=== PATIENT | male | born 1965 | race African-American/Black ===

== ENCOUNTER 2017-06-19 21:20 | Inpatient (IN) | payer MEDICAID ==
[~2017-06-19] VITALS: Ht 175.3 cm; Wt 72.6 kg
[2017-06-19] MEDS ORDERED: SODIUM CHLORIDE 0.9% 1,000 ML IV ONE (22:29)
[2017-06-19] MEDS ORDERED: LIDOCAINE HCL 1% 20ML VIAL (Pyxis) INJ MC ONE (22:30)
[2017-06-19] MEDS ORDERED: TETANUS, DIPHTHERIA, PERTUSSIS VAC/PF 0.5ML (>7YR OLD) IM ONE (22:30)
[2017-06-19] MEDS ORDERED: BACITRACIN ZINC OINT UDPKT TOP ONE (22:30)
[2017-06-19] MEDS ORDERED: PIPERACILLIN/TAZ 3.375G PREMIX 50 ML IV ONE (22:45)
[2017-06-19] MEDS ORDERED: VANCOMYCIN 1 G PREMIX 200 ML IV ONE (22:45)
[2017-06-19 22:58] LABS: BASOPHILS % 0.3 % (0.0-2.0); EOSINOPHILS % 2.1 % (0.0-5.0); HEMATOCRIT. 36.3 % (42.0-52.0); HEMOGLOBIN. 12.5 g/dL (14.0-18.0); LYMPHOCYTES % 9.2 % (20.0-50.0); MEAN CORPUSCULAR HEMOGLOBIN 32.3 pg (28.0-32.0); MEAN CORPUSCULAR VOLUME 94.1 fL (80.0-94.0); MEAN PLATELET VOLUME 7.8 fl (7.4-10.4); MONOCYTES % 4.6 % (2.0-8.0); NEUTROPHILS % 83.8 % (40.0-76.0); PLATELET 257 x1000/uL (130-400); RED BLOOD CELL COUNT 3.86 mill/uL (4.7-6.1); RED CELL DISTRIBUTION WIDTH 14.1 % (11.6-14.6)
[2017-06-19 23:03] LABS: CHLORIDE 100 mEq/L (98-107)
[2017-06-19 23:05] LABS: PROTHROMBIN TIME 10.7 sec (9.4-11.6)
[2017-06-19 23:10] LABS: CARBON DIOXIDE 27 mEq/L (21-32); ETHANOL BLOOD 71 mg/dL
[2017-06-19 23:14] LABS: TROPONIN I < 0.02 ng/mL (0.00-0.04)
[2017-06-19 23:21] LABS: AMMONIA 35 uMol/L (<32)
[2017-06-19 23:23] LABS: CREATINE KINASE 1120 IU/L (39-308)
[2017-06-20] MEDS ORDERED: LACTULOSE 20G/30ML UDC PO SCH ×2 (00:32→04:45)
[2017-06-20] MEDS ORDERED: SODIUM CHLORIDE 0.9% 1000ML BAG (SEPSIS BOLUS) IV SCH ×2 (00:33→04:45)
[2017-06-20 02:14] LABS: *AMPHETAMINES SCREEN URINE NEGATIVE (NEGATIVE); *BARBITURATES SCREEN URINE NEGATIVE (NEGATIVE); *BENZODIAZEPINES SCREEN URINE NEGATIVE (NEGATIVE); *COCAINE SCREEN URINE PRESUMTIVE POSITIVE (NEGATIVE); CANNABINOID URINE SCREEN NEGATIVE (NEGATIVE); METHADONE URINE SCREEN NEGATIVE (NEGATIVE); OPIATES URINE SCREEN NEGATIVE (NEGATIVE); PHENCYCLIDINE URINE SCREEN NEGATIVE (NEGATIVE)
[2017-06-20] MEDS ORDERED: FENTANYL CITRATE/PF 50MCG/ML 2ML VIAL IV ONE (03:30)
[2017-06-20 05:36] LABS: CREATINE KINASE 1125 IU/L (39-308)
[2017-06-20 08:40] VITALS: BP_SYST 133; BP_SYST 141; BP_DIAS 80; BP_DIAS 84
[2017-06-20] MEDS ORDERED: ONDANSETRON HCL 4MG/2ML VIAL IV PRN (11:00)
[2017-06-20] MEDS ORDERED: HYDROCODONE/ACETAMINOPHEN 10/325MG TABLET PO PRN (11:00)
[2017-06-20] MEDS ORDERED: ACETAMINOPHEN 325MG TABLET PO PRN (11:00)
[2017-06-20] MEDS ORDERED: GUAIFENESIN 200MG/10ML SUGAR FREE UDC PO PRN (11:00)
[2017-06-20] MEDS ORDERED: DIPHENHYDRAMINE 50MG/ML VIAL IV PRN (11:00)
[2017-06-20] MEDS ORDERED: CLONIDINE 0.1MG TABLET PO PRN (11:00)
[2017-06-20] MEDS: AMLODIPINE 10MG TABLET PO SCH (11:33)
[2017-06-20] MEDS: ENOXAPARIN 40MG/0.4ML SYR SUBCUT SCH (11:33)
[2017-06-20 12:00] VITALS: BP 152/81
[2017-06-20 15:30] LABS: CREATINE KINASE 889 IU/L (39-308)
[2017-06-20 16:00] VITALS: BP 137/74
[2017-06-20] MEDS: SODIUM CHLORIDE 0.9% 1,000 ML IV SCH (17:57)
[2017-06-20] MEDS: HYDROMORPHONE HCL/PF 2MG/ML CPJ IV PRN (18:28)
[2017-06-20 20:00] VITALS: BP 116/63
[2017-06-21] VITALS (7 sets, daily range): BP systolic 101–135; BP diastolic 54–76
[2017-06-21 01:25] LABS: CREATINE KINASE 822 IU/L (39-308)
[2017-06-21] MEDS: SODIUM CHLORIDE 0.9% 1,000 ML IV SCH ×2 (05:03→12:45)
[2017-06-21] MEDS: HYDROMORPHONE HCL/PF 2MG/ML CPJ IV PRN (05:03)
[2017-06-21 06:02] LABS: CARBON DIOXIDE 29 mEq/L (21-32); CHLORIDE 102 mEq/L (98-107)
[2017-06-21 06:12] LABS: BASOPHILS % 0.4 % (0.0-2.0); EOSINOPHILS % 3.6 % (0.0-5.0); HEMATOCRIT. 38.9 % (42.0-52.0); HEMOGLOBIN. 13.1 g/dL (14.0-18.0); LYMPHOCYTES % 13.8 % (20.0-50.0); MEAN CORPUSCULAR VOLUME 94.9 fL (80.0-94.0); MEAN PLATELET VOLUME 8.4 fl (7.4-10.4); MONOCYTES % 9.8 % (2.0-8.0); NEUTROPHILS % 72.4 % (40.0-76.0); PLATELET 240 x1000/uL (130-400); RED CELL DISTRIBUTION WIDTH 14.1 % (11.6-14.6)
[2017-06-21] MEDS: AMLODIPINE 10MG TABLET PO SCH (08:48)
[2017-06-21] MEDS: ENOXAPARIN 40MG/0.4ML SYR SUBCUT SCH (08:59)
[2017-06-21] MEDS: ASPIRIN 81MG EC TABLET PO SCH (09:00)
[2017-06-21 16:24] LABS: CREATINE KINASE 616 IU/L (39-308)
[2017-06-22] VITALS: BP 102/63
[2017-06-22 04:00] VITALS: BP 125/78
[2017-06-22] MEDS: SODIUM CHLORIDE 0.9% 1,000 ML IV SCH ×2 (05:33→16:20)
[2017-06-22 08:00] VITALS: BP 137/77
[2017-06-22] MEDS: ASPIRIN 81MG EC TABLET PO SCH (08:46)
[2017-06-22] MEDS: AMLODIPINE 10MG TABLET PO SCH (08:46)
[2017-06-22] MEDS: ENOXAPARIN 40MG/0.4ML SYR SUBCUT SCH (08:47)
[2017-06-22] MEDS: HYDROMORPHONE HCL/PF 2MG/ML CPJ IV PRN ×2 (08:53→20:57)
[2017-06-22 12:00] VITALS: BP 112/67
[2017-06-22 16:00] VITALS: BP 120/72
[2017-06-22 20:00] VITALS: BP 113/60
[2017-06-23] VITALS: BP 106/50
[2017-06-23 04:00] VITALS: BP 108/69
[2017-06-23] MEDS: SODIUM CHLORIDE 0.9% 1,000 ML IV SCH ×2 (05:40→19:00)
[2017-06-23 08:00] VITALS: BP 112/64
[2017-06-23] MEDS: ENOXAPARIN 40MG/0.4ML SYR SUBCUT SCH (09:00)
[2017-06-23] MEDS: SILVER SULFADIAZINE 1% CREAM 50GM TOP SCH (09:15)
[2017-06-23] MEDS: AMLODIPINE 10MG TABLET PO SCH (09:15)
[2017-06-23] MEDS: ASPIRIN 81MG EC TABLET PO SCH (09:15)
[2017-06-23 12:00] VITALS: BP_SYST 112; BP_SYST 117; BP_DIAS 64; BP_DIAS 70
[2017-06-23 16:00] VITALS: BP 121/76
[2017-06-23] MEDS: HYDROMORPHONE HCL/PF 2MG/ML CPJ IV PRN ×2 (16:46→20:18)
[2017-06-23 20:00] VITALS: BP 150/87
[2017-06-24] VITALS: BP 105/60
[2017-06-24 04:00] VITALS: BP 105/62
[2017-06-24 08:00] VITALS: BP 133/79
[2017-06-24] MEDS: SODIUM CHLORIDE 0.9% 1,000 ML IV SCH ×2 (08:20→22:29)
[2017-06-24] MEDS: SILVER SULFADIAZINE 1% CREAM 50GM TOP SCH (08:27)
[2017-06-24] MEDS: AMLODIPINE 10MG TABLET PO SCH (08:27)
[2017-06-24] MEDS: ASPIRIN 81MG EC TABLET PO SCH (08:27)
[2017-06-24] MEDS: ENOXAPARIN 40MG/0.4ML SYR SUBCUT SCH (08:54)
[2017-06-24] MEDS: HYDROMORPHONE HCL/PF 2MG/ML CPJ IV PRN ×3 (10:30→20:44)
[2017-06-24 12:00] VITALS: BP 105/58
[2017-06-24 16:00] VITALS: BP 115/73
[2017-06-24 20:00] VITALS: BP_SYST 122; BP_SYST 126; BP_DIAS 71; BP_DIAS 72
[2017-06-25] VITALS: BP 135/66
[2017-06-25 04:00] VITALS: BP 123/61
[2017-06-25 08:00] VITALS: BP 105/64
[2017-06-25] MEDS: ENOXAPARIN 40MG/0.4ML SYR SUBCUT SCH (09:00)
[2017-06-25] MEDS: AMLODIPINE 10MG TABLET PO SCH (09:00)
[2017-06-25] MEDS: ASPIRIN 81MG EC TABLET PO SCH (09:19)
[2017-06-25] MEDS: SODIUM CHLORIDE 0.9% 1,000 ML IV SCH (11:00)
[2017-06-25 12:00] VITALS: BP 110/65
[2017-06-25] MEDS: SILVER SULFADIAZINE 1% CREAM 50GM TOP SCH (14:57)
[2017-06-25 16:00] VITALS: BP 108/61
[2017-06-25] MEDS: HYDROMORPHONE HCL/PF 2MG/ML CPJ IV PRN (17:28)
[2017-06-25 20:00] VITALS: BP 124/73
[2017-06-25] MEDS: HYDROCODONE/ACETAMINOPHEN 10/325MG TABLET PO PRN (21:07)
[2017-06-26] VITALS: BP 127/72
[2017-06-26] MEDS: SODIUM CHLORIDE 0.9% 1,000 ML IV SCH ×2 (00:20→13:40)
[2017-06-26 04:00] VITALS: BP 127/78
[2017-06-26 08:00] VITALS: BP 112/72
[2017-06-26] MEDS: ENOXAPARIN 40MG/0.4ML SYR SUBCUT SCH ×2 (08:46→09:00)
[2017-06-26] MEDS: AMLODIPINE 10MG TABLET PO SCH (08:46)
[2017-06-26] MEDS: ASPIRIN 81MG EC TABLET PO SCH (08:46)
[2017-06-26] MEDS: HYDROMORPHONE HCL/PF 2MG/ML CPJ IV PRN ×2 (08:47→15:33)
[2017-06-26] MEDS: SILVER SULFADIAZINE 1% CREAM 50GM TOP SCH (08:48)
[2017-06-26 12:00] VITALS: BP 104/54
[2017-06-26 16:00] VITALS: BP 105/58
[2017-06-26] MEDS: HYDROCODONE/ACETAMINOPHEN 10/325MG TABLET PO PRN (18:37)
[2017-06-26 20:00] VITALS: BP 104/53
[2017-06-27] VITALS: BP 112/60
[2017-06-27 04:00] VITALS: BP 118/67
[2017-06-27 07:50] VITALS: BP 119/66
[2017-06-27] MEDS: ENOXAPARIN 40MG/0.4ML SYR SUBCUT SCH (09:00)
[2017-06-27] MEDS: AMLODIPINE 10MG TABLET PO SCH (09:00)
[2017-06-27] MEDS: ASPIRIN 81MG EC TABLET PO SCH (09:00)
[2017-06-27] MEDS: SILVER SULFADIAZINE 1% CREAM 50GM TOP SCH (09:13)
[2017-06-27] MEDS: HYDROMORPHONE HCL/PF 2MG/ML CPJ IV PRN (09:32)
[2017-06-27 12:15] VITALS: BP 119/68
[2017-06-27 15:09] VITALS: BP 105/55
== END 2017-06-27 15:30 | DRG 384 ==
LOC: ER 22:44 → 8WST 06-20 05:04 → EDBEDREQSVC 06-20 05:05 → ENRESERV 06-20 06:44
PROVIDERS: ADMIT Hospitalist; ATTEND Hospitalist
DX: S41.152A Open bite of left upper arm, initial encounter (principal); M62.82 Rhabdomyolysis; D50.9 Iron deficiency anemia, unspecified; I10 Essential (primary) hypertension; F14.10 Cocaine abuse, uncomplicated; F17.200 Nicotine dependence, unspecified, uncomplicated; S71.152A Open bite, left thigh, initial encounter; S41.151A Open bite of right upper arm, initial encounter; W54.0XXA Bitten by dog, initial encounter; Y93.89 Activity, other specified; Y92.89 Other specified places as the place of occurrence of the external cause; Y99.8 Other external cause status
CPT/HCPCS: 12002; 36415; 70450; 71010; 73060; 73080; 73090; 73110; 74176; 80053; 80305; 80307; 80329; 82140; 82550; 84484; 85025; 85610; 86850; 86900; 90471; 90715; 96365; 96375; 97161; 97166; 99285; G0482; J1170; J1650; J2543; J3010; J3370; J3490; J7030

== ENCOUNTER 2018-04-12 04:03 | Emergency (ER) | payer MEDICAID ==
[~2018-04-12] VITALS: Ht 180.3 cm; Wt 85.0 kg
[2018-04-12] MEDS ORDERED: MORPHINE SULFATE 4 MG/ML CPJ (NOT FOR IM USE) IV ONE ×2 (04:45→11:15)
[2018-04-12] MEDS ORDERED: ONDANSETRON HCL 4MG/2ML VIAL IV ONE (04:45)
[2018-04-12 05:10] LABS: BASOPHILS % 0.3 % (0.0-2.0); EOSINOPHILS % 0.8 % (0.0-5.0); HEMATOCRIT. 35.9 % (42.0-52.0); LYMPHOCYTES % 10.1 % (20.0-50.0); MEAN CORPUSCULAR VOLUME 95.5 fL (80.0-94.0); MEAN PLATELET VOLUME 7.9 fl (7.4-10.4); MONOCYTES % 5.8 % (2.0-8.0); PLATELET 238 x1000/uL (130-400); RED BLOOD CELL COUNT 3.76 mill/uL (4.7-6.1); RED CELL DISTRIBUTION WIDTH 13.6 % (11.6-14.6)
[2018-04-12 05:16] LABS: CHLORIDE 106 mEq/L (98-107)
[2018-04-12] MEDS ORDERED: MIDAZOLAM HCL 2 MG/2 ML VIAL IV ONE (06:15)
[2018-04-12] MEDS ORDERED: IOHEXOL-300 100 ML BOTTLE ONE (09:26)
[2018-04-12] MEDS ORDERED: SODIUM CHLORIDE 0.9% 1,000 ML IV ONE (11:03)
[2018-04-12] MEDS ORDERED: PIPERACILLIN/TAZ 3.375G PREMIX 50 ML IV ONE (11:15)
[2018-04-12 13:10] VITALS: BP 175/105
== END 2018-04-12 13:36 | disposition short-term general hospital (02) ==
LOC: ER 04:03
DX: S39.81XA Other specified injuries of abdomen, initial encounter (principal); F17.200 Nicotine dependence, unspecified, uncomplicated; F14.10 Cocaine abuse, uncomplicated; Y00.XXXA Assault by blunt object, initial encounter; Y93.89 Activity, other specified; Y92.89 Other specified places as the place of occurrence of the external cause; Y99.8 Other external cause status
CPT/HCPCS: 36415; 74177; 80053; 85025; 96365; 96366; 96375; 96376; 99291; G0482; J2250; J2270; J2405; J2543; J7030; Q9967; Z7610

== ENCOUNTER 2019-04-20 00:44 | Emergency (ER) | payer MEDICAID ==
[~2019-04-20] VITALS: Ht 177.8 cm; Wt 82.0 kg
[2019-04-20 05:29] LABS: BASOPHILS % 0.8 % (0.0-2.0); EOSINOPHILS % 0.6 % (0.0-5.0); HEMATOCRIT. 37.5 % (42.0-52.0); HEMOGLOBIN. 12.5 g/dL (14.0-18.0); LYMPHOCYTES % 10.3 % (20.0-50.0); MEAN CORPUSCULAR HEMOGLOBIN 31.7 pg (28.0-32.0); MEAN CORPUSCULAR VOLUME 94.9 fL (80.0-94.0); MEAN PLATELET VOLUME 7.7 fl (7.4-10.4); MONOCYTES % 10.3 % (2.0-8.0); PLATELET 227 x1000/uL (130-400); RED BLOOD CELL COUNT 3.95 mill/uL (4.7-6.1); RED CELL DISTRIBUTION WIDTH 13.6 % (11.6-14.6)
[2019-04-20 05:41] LABS: PROTHROMBIN TIME 10.2 sec (9.6-11.0)
[2019-04-20 05:42] LABS: CHLORIDE 99 mEq/L (98-107)
[2019-04-20 05:51] LABS: CLARITY URINE CLEAR (CLEAR); COLOR URINE YELLOW (YELLOW); KETONES URINE NEGATIVE (NEGATIVE); LEUKOCYTE ESTERASE URINE NEGATIVE (NEGATIVE); NITRITE URINE NEGATIVE (NEGATIVE); OCCULT BLOOD URINE NEGATIVE (NEGATIVE); PROTEIN URINE TRACE (NEGATIVE)
[2019-04-20] MEDS ORDERED: KETOROLAC 60MG/2ML VIAL IM STA (06:12)
[2019-04-20] MEDS ORDERED: KETOROLAC 30MG/ML VIAL IV ONE (06:45)
[2019-04-20] MEDS ORDERED: CEFTRIAXONE 1 G PREMIX 50 ML IV ONE (07:30)
[2019-04-20] MEDS ORDERED: AZITHROMYCIN 500 MG TABLET PO ONE (07:30)
[2019-04-20 08:06] VITALS: BP 141/82
== END 2019-04-20 08:17 | disposition home or self-care (01) ==
LOC: ER 00:44
DX: J18.8 Other pneumonia, unspecified organism (principal); K40.90 Unilateral inguinal hernia, without obstruction or gangrene, not specified as recurrent; F17.290 Nicotine dependence, other tobacco product, uncomplicated; Z98.890 Other specified postprocedural states
CPT/HCPCS: 36415; 71045; 74018; 80053; 81003; 83690; 85025; 85610; 96365; 96375; 99284; 99406; J0696; J1885; Z7610

== ENCOUNTER 2020-12-12 21:15 | Emergency (ER) | payer MEDICAID, OTHER ==
[~2020-12-12] VITALS: Ht 175.3 cm; Wt 84.5 kg
[2020-12-12] MEDS ORDERED: ENALAPRIL 2.5MG/2ML VIAL 2ML IV ONE (23:00)
[2020-12-12 23:12] LABS: BASOPHILS % 0.4 % (0.0-2.0); EOSINOPHILS % 1.1 % (0.0-5.0); HEMOGLOBIN. 13.9 g/dL (14.0-18.0); LYMPHOCYTES % 8.6 % (20.0-50.0); MEAN CORPUSCULAR HEMOGLOBIN 32.6 pg (28.0-32.0); MEAN CORPUSCULAR VOLUME 93.8 fL (80.0-94.0); MEAN PLATELET VOLUME 7.9 fl (7.4-10.4); MONOCYTES % 6.5 % (2.0-8.0); NEUTROPHILS % 83.4 % (40.0-76.0); PLATELET 248 x1000/uL (130-400); RED BLOOD CELL COUNT 4.27 mill/uL (4.7-6.1); RED CELL DISTRIBUTION WIDTH 13.7 % (11.6-14.6)
[2020-12-12 23:19] LABS: CHLORIDE 95 mEq/L (98-107)
[2020-12-12 23:23] LABS: ETHANOL BLOOD 27 mg/dL
[2020-12-12 23:47] LABS: *AMPHETAMINES SCREEN URINE NEGATIVE (NEGATIVE); *BARBITURATES SCREEN URINE NEGATIVE (NEGATIVE); METHADONE URINE SCREEN NEGATIVE (NEGATIVE)
[2020-12-12 23:48] LABS: *BENZODIAZEPINES SCREEN URINE NEGATIVE (NEGATIVE); *COCAINE SCREEN URINE PRESUMTIVE POSITIVE (NEGATIVE); CANNABINOID URINE SCREEN NEGATIVE (NEGATIVE); OPIATES URINE SCREEN NEGATIVE (NEGATIVE); PHENCYCLIDINE URINE SCREEN PRESUMTIVE POSITIVE (NEGATIVE)
[2020-12-13] MEDS ORDERED: IBUP-2028 MT (02:29)
[2020-12-13 02:30] VITALS: BP 144/68
== END 2020-12-13 04:01 | disposition home or self-care (01) ==
LOC: ER 21:15
DX: S09.8XXA Other specified injuries of head, initial encounter (principal); F07.81 Postconcussional syndrome; Y00.XXXA Assault by blunt object, initial encounter; I10 Essential (primary) hypertension; Y93.89 Activity, other specified; Y92.512 Supermarket, store or market as the place of occurrence of the external cause
CPT/HCPCS: 36415; 70450; 80053; 80305; 80320; 85025; 93005; 96374; 99285; J3490; G0480

== ENCOUNTER 2020-12-13 04:14 | Emergency (ER) | payer MEDICAID, OTHER ==
[~2020-12-13] VITALS: Ht 175.3 cm; Wt 73.0 kg
[~2020-12-13 04:14] MED LIST: IBUP-2028 MT
[2020-12-13 06:23] VITALS: BP 142/92
== END 2020-12-13 06:23 | disposition home or self-care (01) ==
LOC: ER 04:14
DX: F07.81 Postconcussional syndrome (principal); S09.8XXA Other specified injuries of head, initial encounter; I10 Essential (primary) hypertension; X58.XXXA Exposure to other specified factors, initial encounter; Y93.89 Activity, other specified; Y92.89 Other specified places as the place of occurrence of the external cause
CPT/HCPCS: 99281